=== PATIENT | female | born 1965 | race Two or more races ===

== ENCOUNTER 2024-01-19 21:29 | Emergency (ER) | payer BC ==
[2024-01-19] MEDS ORDERED: NA CHLORIDE 0.9% 1,000 ML ONE (22:27)
[2024-01-19] MEDS ORDERED: METOCLOPRAMIDE 10 MG/2mL INJ ONE (22:27)
[2024-01-19] MEDS ORDERED: ACETAMINOPHEN 500 MG TAB ONE (22:27)
[2024-01-19] MEDS ORDERED: KETOROLAC 30 MG/ML INJ ONE (22:27)
[2024-01-19] MEDS ORDERED: DIPHENHYDRAMINE 50 MG/ML VIAL ONE (22:32)
--- NOTE | 2024-01-19 23:32 | EDPHYS ---
Physician Documentation [facility] Name: Libia Lyons Age: 58 yrs Sex: Female : 1965 Arrival Date: 01/19/2024 Time: 21:29 Bed 12 Private MD: ED Physician Rex Medina HPI: 01/18 21:35 This 58 yrs old Female presents to ER via Unassigned with complaints of sp4 Vomiting, Headache. 01/19 06:00 58-year-old female presents with worsening migraine headache for the past several days. sp4 Patient reports several episodes of vomiting today. 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 - Infectious Disease History:: Denies. - Social history:: Smoking status: Patient denies any tobacco usage or history of. Patient uses alcohol, occasionally. Patient/guardian denies using street drugs. - Family history:: not pertinent. ROS: 01/19 06:00 Constitutional: Negative for fever, chills, and weight loss, positive today for sp4 migraine headache, positive for vomiting All other systems are negative, Exam: 06:00 Constitutional: This is a well developed, well nourished patient who is awake, alert, sp4 and in no acute distress. Head/Face: Normocephalic, atraumatic. Eyes: Pupils equal round and reactive to light, extra-ocular motions intact. Lids and lashes normal. Conjunctiva and sclera are not injected. Cornea within normal limits. Periorbital areas with no swelling, redness, or edema. ENT: Nares patent. No nasal discharge, no septal abnormalities noted. Tympanic membranes are normal and external auditory canals are clear. Oropharynx with no redness, swelling, or masses, exudates, or evidence of obstruction, uvula midline. Mucous membranes moist. Neck: Trachea midline, no thyromegaly or masses palpated, and no cervical lymphadenopathy. Supple, full range of motion without nuchal rigidity, or vertebral point tenderness. Chest/axilla: Normal chest wall appearance and motion. Nontender with no deformity. No lesions are appreciated. Cardiovascular: Regular rate and rhythm with a normal S1 and S2. No gallops, murmurs, or rubs. Normal PMI, no JVD. No pulse deficits. Respiratory: Lungs have equal breath sounds bilaterally, clear to auscultation and percussion. No rales, rhonchi or wheezes noted. No increased work of breathing, no retractions or nasal flaring. Abdomen/GI: Soft, with normal bowel sounds. No distension or tympany. No guarding or rebound. No evidence of tenderness throughout. Back: No spinal tenderness. No costovertebral tenderness. Skin: Warm, dry with normal turgor. Normal color with no rashes, no lesions, and no evidence of cellulitis. MS/ Extremity: Pulses equal, no cyanosis. Neurovascular intact. Full, normal range of motion. Neuro: Awake and alert, GCS 15, oriented to person, place, time, and situation. Cranial nerves II-XII grossly intact. Motor strength 5/5 in all extremities. Sensory grossly intact. Psych: Awake, alert, with orientation to person, place and time. Behavior, mood, and affect are within normal limits Vital Signs: 01/18 22:10 BP 160 / 91; Pulse 81; Resp 17 S; Temp 98.4(O); Pulse Ox 100% on R/A; Weight 48.99 kg lg3 (R); Height 5 ft. 2 in. (R); 23:14 BP 142 / 84; Pulse 102; Resp 18; Pulse Ox 100% on R/A; tl4 23:57 BP 147 / 80; Pulse 85; Resp 18; Temp 98.3(O); Pulse Ox 99% on R/A; Pain 0/10; tl4 22:10 Body Mass Index 19.75 (48.99 kg, 157.48 cm) lg3 23:57 Pain Scale: Adult tl4 [place] Coma Score: 01/19 06:00 Eye Response: spontaneous(4). Motor Response: obeys commands(6). Verbal Response: sp4 oriented(5). Total: 15. MDM: 01/18 21:35 Medical Screening Exam initiated sp4 01/19 06:00 Differential diagnosis: Nonspecific abd pain, gastritis, viral gastroenteritis, sp4 gastroenteritis. Data reviewed: vital signs, nurses notes. Consideration of Admission/Observation Escalation of care including admission/observation considered. ED course: Headache Has resolved. Patient is stable for discharge home with prescription for Fioricet. . 01/18 22:09 Order name: Saline Lock; Complete Time: 23:16 sp4 Administered Medications: 01/18 23:15 Drug: metoCLOPramide IVP 10 mg IVP once; over 1 to 2 minutes Route: IVP; Infused Over: tl4 2 mins; Site: left antecubital; 23:26 Follow up: Response: No adverse reaction; Pain is decreased tl4 23:15 Drug: diphenhydrAMINE IVP 25 mg IVP once Route: IVP; Site: left antecubital; tl4 23:26 Follow up: Response: No adverse reaction; Pain is decreased tl4 23:15 Drug: NS 0.9% IV 1000 ml IV at 1 bolus Per protocol; to be given as a bolus over 60 tl4 minutes Route: IV; Rate: 1 bolus; Site: left antecubital; Delivery: Primary tubing; 23:26 Follow up: Response: No adverse reaction tl4 23:58 Follow up: IV Status: Completed infusion; IV Intake: 1000ml tl4 23:15 Drug: Acetaminophen PO 1000 mg PO once Route: PO; tl4 23:26 Follow up: Response: No adverse reaction; Pain is decreased tl4 23:16 Drug: Ketorolac IVP 15 mg IVP once Route: IVP; Site: left antecubital; tl4 23:26 Follow up: Response: No adverse reaction; Pain is decreased tl4 Disposition Summary: 01/19/24 23:31 Discharge Ordered Notes: Location: Home sp4 Problem: new sp4 Symptoms: have improved sp4 Condition: Stable sp4 Diagnosis - Migraine without aura, intractable, without status migrainosus sp4 Followup: sp4 - With: Private Physician - When: 7 - 10 days - Reason: Recheck today's complaints Discharge Instructions: - Discharge Summary Sheet sp4 - Migraine Headache sp4 Forms: - Patient Portal Instructions sp4 Prescriptions: - Fioricet 50-300-40 mg Oral capsule - take 1 capsule ORAL route every 6 hours PRN headache; 30 capsule; Refills: 0, sp4 Product Selection Permitted - ondansetron 8 mg Oral Tablet,disintegrating - take 1 tablet ORAL route every 8 hours PRN nausea; 30 tablet; Refills: 0, sp4 Product Selection Permitted Signatures: Maranda Kaur RN RN lg3 Rex Medina MD MD sp4 Vadim Bailey RN RN tl4
--- NOTE | 2024-01-19 23:32 | ER ---
Nurse's Notes [facility] Name: Libia Lyons Age: 58 yrs Sex: Female : 1965 Arrival Date: 01/19/2024 Time: 21:29 Bed 12 Private MD: Diagnosis: Migraine without aura, intractable, without status migrainosus Presentation: 01/18 22:10 Chief complaint: Patient states: migraine X1 week. Coronavirus screen: Client denies lg3 travel out of the [place] in the last 14 days. At this time, the client does not indicate any symptoms associated with coronavirus-19. Ebola Screen: No symptoms or risks identified at this time. Initial Sepsis Screen: Does the patient meet any 2 criteria? No. Patient's initial sepsis screen is negative. Does the patient have a suspected source of infection? No. Patient's initial sepsis screen is negative. Risk Assessment: Do you want to hurt yourself or someone else? Patient reports no desire to harm self or others. Onset of symptoms is unknown. 22:10 Method Of Arrival: Ambulatory lg3 22:10 Acuity: NAUN 3 lg3 Triage Assessment: 22:12 General: Appears in no apparent distress. uncomfortable, Behavior is calm, cooperative. lg3 Pain: Complains of pain in head. EENT: No deficits noted. No signs and/or symptoms were reported regarding the EENT system. Neuro: No deficits noted. Brennan Agitation-Sedation Scale (RASS): 0 - Alert and Calm Level of Consciousness is awake, alert, obeys commands, Oriented to person, place, time, situation, Reports headache. Cardiovascular: No deficits noted. Denies chest pain, shortness of breath, Capillary refill < 3 seconds Clubbing of nail beds is absent JVD is absent Patient's skin is warm and dry. Respiratory: No deficits noted. Airway is patent Respiratory effort is even, unlabored, Respiratory pattern is regular, symmetrical. GI: Abdomen is flat, non-distended, Reports nausea, vomiting. : No deficits noted. No signs and/or symptoms were reported regarding the genitourinary system. Derm: No deficits noted. No signs and/or symptoms reported regarding the dermatologic system. Skin is intact, is healthy with good turgor, Skin is dry, Skin is normal, Skin temperature is warm. Musculoskeletal: No deficits noted. No signs and/or symptoms reported regarding the musculoskeletal system. Circulation, motion, and sensation intact. Range of motion: intact in all extremities. 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 - Infectious Disease History:: Denies. - Social history:: Smoking status: Patient denies any tobacco usage or history of. Patient uses alcohol, occasionally. Patient/guardian denies using street drugs. - Family history:: not pertinent. Screenin:11 [facility] ED Fall Risk Assessment (Adult) History of falling in the last 3 months, tl4 including since admission No falls in past 3 months (0 pts) Confusion or Disorientation No (0 pts) Intoxicated or Sedated No (0 pts) Impaired Gait No (0 pts) Mobility Assist Device Used No (0 pt) Altered Elimination No (0 pt) Score/Fall Risk Level 0 - 2 = Low Risk Oriented to surroundings, Maintained a safe environment, Educated pt \T\ family on fall prevention, incl call for assistance when getting out of bed, Assessed \T\ reinforced patient's understanding of fall precautions. Abuse screen: Denies threats or abuse. Denies injuries from another. Nutritional screening: No deficits noted. Tuberculosis screening: No symptoms or risk factors identified. Assessment: 23:10 General: Appears uncomfortable, Behavior is calm, cooperative. Pain: Complains of pain tl4 in head. Neuro: Level of Consciousness is awake, alert, obeys commands, Oriented to person, place, time, situation, Reports headache. Cardiovascular: Capillary refill < 3 seconds Patient's skin is warm and dry. Respiratory: Airway is patent Respiratory effort is even, unlabored, Respiratory pattern is regular, symmetrical, Breath sounds are clear bilaterally. GI: Reports nausea, vomiting. GI: Abd is soft and non tender. : No signs and/or symptoms were reported regarding the genitourinary system. EENT: No signs and/or symptoms were reported regarding the EENT system. Derm: No signs and/or symptoms reported regarding the dermatologic system. Musculoskeletal: No signs and/or symptoms reported regarding the musculoskeletal system. Vital Signs: 22:10 BP 160 / 91; Pulse 81; Resp 17 S; Temp 98.4(O); Pulse Ox 100% on R/A; Weight 48.99 kg lg3 (R); Height 5 ft. 2 in. (R); 23:14 BP 142 / 84; Pulse 102; Resp 18; Pulse Ox 100% on R/A; tl4 23:57 BP 147 / 80; Pulse 85; Resp 18; Temp 98.3(O); Pulse Ox 99% on R/A; Pain 0/10; tl4 22:10 Body Mass Index 19.75 (48.99 kg, 157.48 cm) lg3 23:57 Pain Scale: Adult tl4 [place] Coma Score: 01/19 06:00 Eye Response: spontaneous(4). Motor Response: obeys commands(6). Verbal Response: sp4 oriented(5). Total: 15. ED Course: 01/18 21:34 Patient arrived in ED. ra3 21:35 Rex Medina MD is Attending Physician. sp4 22:12 Triage completed. lg3 22:12 Arm band placed on right wrist. lg3 23:12 Patient has correct armband on for positive identification. Bed in low position. Call tl4 light in reach. Side rails up X 1. Adult w/ patient. Provided Education on: ed process, call amaya. Client placed on continuous cardiac and pulse oximetry monitoring. NIBP monitoring applied. Door closed. Noise minimized. Lights dimmed. Moved to private room. Warm blanket given. Diet: Patient given water. 23:12 No provider procedures requiring assistance completed. Inserted saline lock: 22 gauge tl4 in left antecubital area, using aseptic technique. Flushed with 10 mL NS. 23:57 IV discontinued, intact, bleeding controlled, No redness/swelling at site. Pressure tl4 dressing applied. Administered Medications: 23:15 Drug: metoCLOPramide IVP 10 mg IVP once; over 1 to 2 minutes Route: IVP; Infused Over: tl4 2 mins; Site: left antecubital; 23:26 Follow up: Response: No adverse reaction; Pain is decreased tl4 23:15 Drug: diphenhydrAMINE IVP 25 mg IVP once Route: IVP; Site: left antecubital; tl4 23:26 Follow up: Response: No adverse reaction; Pain is decreased tl4 23:15 Drug: NS 0.9% IV 1000 ml IV at 1 bolus Per protocol; to be given as a bolus over 60 tl4 minutes Route: IV; Rate: 1 bolus; Site: left antecubital; Delivery: Primary tubing; 23:26 Follow up: Response: No adverse reaction tl4 23:58 Follow up: IV Status: Completed infusion; IV Intake: 1000ml tl4 23:15 Drug: Acetaminophen PO 1000 mg PO once Route: PO; tl4 23:26 Follow up: Response: No adverse reaction; Pain is decreased tl4 23:16 Drug: Ketorolac IVP 15 mg IVP once Route: IVP; Site: left antecubital; tl4 23:26 Follow up: Response: No adverse reaction; Pain is decreased tl4 Medication: 23:11 VIS not applicable for this client. tl4 Intake: 23:58 IV: 1000ml; Total: 1000ml. tl4 Outcome: 23:31 Discharge ordered by . sp4 23:58 Discharged to home ambulatory, with family, tl4 23:58 Condition: stable 23:58 Discharge instructions given to patient, Instructed on discharge instructions, follow up and referral plans. medication usage, Demonstrated understanding of instructions, follow-up care, medications, Prescriptions given X 2, 23:58 Patient left the ED. tl4 Signatures: Maranda Kaur RN RN lg3 Rex Medina MD MD sp4 Vadim Bailey RN RN tl4 Letty Moreno 3
[2024-01-20 03:14] VITALS: BP 147/80; TEMP 98.3; O2SAT 99
== END 2024-01-19 23:58 | disposition home or self-care (01) ==
LOC: ER 21:29
DX: G43.019 Migraine without aura, intractable, without status migrainosus (principal); F41.9 Anxiety disorder, unspecified; I10 Essential (primary) hypertension
CPT/HCPCS: 96361; 96375; 96374; 99284; J2765; J1200; J7030